=== PATIENT | male | born 1975 | race Caucasian/White ===

== ENCOUNTER 2017-02-22 21:27 | Emergency (ER) | payer OTHER ==
[~2017-02-22] VITALS: Ht 170.2 cm; Wt 103.1 kg
[~2017-02-22 21:27] MED LIST: ANAPROX DS550 M1 PO; FLEXERIL10 MG PO; TERBINAFINE HC250 MG PO
[2017-02-23 00:09] LABS: HEMATOCRIT 41.8 % (38.0-50.0); MCH 31.5 PG (29.0-34.0); MCHC 34.9 G/DL (30.0-36.0); MCV 90.1 FL (86-99); MEAN PLAT.VOLUME 9.2 uM^3 (9.0-12.4); PLATELET COUNT 159 K/uL (156-360); RBC DIS.WIDTH-CV 11.9 % (11.8-14.6); RBC DIS.WIDTH-SD 39.2 % (39-53); RED BLOOD COUNT 4.64 M/uL (4.00-5.50); WHITE BLOOD COUNT 7.5 K/uL (4.1-10.2)
[2017-02-23 00:20] LABS: CHLORIDE 107 mEq/L (99-109); POTASSIUM 3.2 mEq/L (3.7-5.4); SODIUM 140 mEq/L (136-147)
[2017-02-23 00:22] LABS: GLUCOSE 117 mg/dL (70-99)
[2017-02-23 00:23] LABS: ANION GAP 11 MEQ/L (2-14)
[2017-02-23 00:26] LABS: GFR ESTIMATE (CALCULATED) > 59 mL/min/
[2017-02-23 00:27] LABS: UREA NITROGEN (BUN) 23 mg/dL (9-23)
[2017-02-23 00:36] LABS: ADD MIUA? YES; BILIRUBIN NEGATIVE; BLOOD NEGATIVE; COLOR YELLOW ((YELLOW)); GLUCOSE (STRIP) NEGATIVE; KETONES NEGATIVE; LEUKOCYTES NEGATIVE; NITRITE NEGATIVE; PROTEIN (STRIP) 30
[2017-02-23 00:46] LABS: BACTERIA RARE /HPF; EPITHELIAL CELLS RARE /HPF; MUCUS 2+ /LPF; RED BLOOD CELLS 0-5 /HPF (0-5); WHITE BLOOD CELLS 0-5 /HPF (0-5)
[2017-02-23 02:15] VITALS: BP 96/65
== END 2017-02-23 02:21 | disposition home or self-care (01) ==
LOC: EME 21:27
PROVIDERS: Physician Assistant
DX: R25.2 Cramp and spasm (principal); R00.0 Tachycardia, unspecified; I10 Essential (primary) hypertension
CPT/HCPCS: 80048; 81003; 85027; 93005